=== PATIENT | male | born 1985 | race Two or more races ===

== ENCOUNTER 2025-05-01 16:39 | Inpatient (IN) | payer MEDICAID, OTHER ==
[~2025-05-01] VITALS: Ht 172.7 cm; Wt 85.0 kg
--- NOTE | 2025-05-01 17:07 | ED.PDOC ---
Altered Mental Status HPI Comments This is a 40-year-old male with past medical history of multiple psychiatric problems, depression, anxiety, possible developmental delay brought in by EMS from home due to altered mental status. Per EMS report, family called because patient has been catatonic (is not moving), and decreased oral intake. Per EMS report, patient was hypertensive at the scene (160s) upon ER arrival blood pressure was 145/75. During my assessment, patient was not responding to questions, tried to speak through the ceramic artist (per EMS removed, family speaks Colombian). Time Seen by MD: 16:45 Reviewed Notes: Nurses Notes Allergies: Coded Allergies: NO KNOWN ALLERGIES (Unverified , 05/01/25) Information Source: Patient Mode of Arrival: EMS Severity: Severe Past Medical History PAST MEDICAL HISTORY: Denies Surgical History: Denies all surgeries Family History Family History: Reviewed,noncontributory to illness, No family hx of Cancer, No family hx of DM, No family hx of Heart angela, No family hx of HTN, No family hx ofKidney angela, No family hx of Liver angela, No family hx of Lung angela, No family hx of Stroke Social History Smoker: Non-Smoker Alcohol: Denies ETOH Use Drugs: Denies Drug Use Constitutional: reports: others (Patient is altered and can not provide review of system.) Physical Exam General Appearance: Moderate Distress, No Apparent Distress, Normal HEENT: Normal ENT Inspection, Pharynx Normal, TMs Normal Neck: Full Range of Motion, Non-Tender, Normal, Normal Inspection Respiratory: Chest Non-Tender, Lungs Clear, No Accessory Muscle Use, No Respiratory Distress, Normal Breath Sounds Cardiovascular: No Edema, No JVD, No Murmur, No Gallop, Normal Peripheral Pulses, Regular Rate/Rhythm Breast Exam: Deferred Gastrointestinal: No Organomegaly, Non Tender, No Pulsatile Mass, Normal Bowel Sounds, Soft Genitalia: Deferred Pelvic: Deferred Rectal: Deferred Extremities: No calf tenderness, Normal capillary refill, Normal inspection, Normal range of motion, Non-tender, No pedal edema Neurologic: Alert, louver door assembler II-XII nml as Tested, No Motor Deficits, Normal Affect, Normal Mood, No Sensory Deficits Cerebellar Function: Normal Reflexes: Normal Skin: Dry, Normal Color, Warm Lymphatic: No Adenopathy Was a procedure done? Was a procedure done?: No Differential Diagnosis (ALOC) Differential Diagnosis: Dehydration, Meningitis, Sepsis, Hypoxemia, Drug Overdose, ETOH Intoxication X-Ray, Labs, Meds, VS Vital Signs Date Time Temp Pulse Resp B/P (MAP) Pulse Ox O2 Delivery O2 Flow Rate FiO2 05/01/25 19:15 114 10 141/82 (101) 97 05/01/25 19:15 Nasal Cannula* 4 36 05/01/25 18:37 117 05/01/25 16:40 98.2 100 24 145/98 94 98.2 Lab Test 05/01/25 17:21 Range/Units White Blood Count 13.3 H 4.4-10.8 10^3/uL Red Blood Count 4.25 L 4.5-5.90 10^6/uL Hemoglobin 13.0 L 13.5-17.5 g/dL Hematocrit 39.5 L 41.0-53.0 % Mean Corpuscular Volume 93.0 80.0-100.0 fL Mean Corpuscular Hemoglobin 30.6 28.0-32.0 pg Mean Corpuscular Hemoglobin Concent 32.9 32.0-36.0 g/dL Red Cell Distribution Width 14.6 H 11.8-14.3 % Platelet Count 83 L 140-450 10^3/uL Mean Platelet Volume 7.7 6.9-10.8 fL Neutrophils (%) (Auto) 76.8 37.0-80.0 % Lymphocytes (%) (Auto) 9.3 L 10.0-50.0 % Monocytes (%) (Auto) 13.5 H 0.0-12.0 % Eosinophils (%) (Auto) 0.1 0.0-7.0 % Basophils (%) (Auto) 0.3 0.0-2.0 % Neutrophils # (Auto) 10.2 H 1.6-8.6 10 ^3/uL Lymphocytes # (Auto) 1.2 0.4-5.4 10 ^3/uL Monocytes # (Auto) 1.8 H 0-1.3 10 ^3/uL Eosinophils # (Auto) 0 0-0.8 10 ^3/uL Basophils # (Auto) 0 0-0.2 10 ^3/uL Nucleated Red Blood Cells 0.0 % Sodium Level 144 136-145 mmol/L Potassium Level 4.1 3.5-5.1 mmol/L Chloride Level 112 H 98-107 mmol/L Carbon Dioxide Level 23 20-31 mmol/L Anion Gap 9 5-15 Blood Urea Nitrogen 12 9-23 mg/dL Creatinine 1.02 0.700-1.30 mg/dL Glomerular Filtration Rate Calc 95 >90 mL/min BUN/Creatinine Ratio 11.8 10.0-20.0 Serum Glucose 92 74-106 mg/dL Calcium Level 7.6 L 8.7-10.4 mg/dL Total Bilirubin 0.3 0.2-1.0 mg/dL Aspartate Amino Transferase (AST) 44 H 13-40 U/L Alanine Aminotransferase (ALT) 31 7-40 U/L Alkaline Phosphatase 80 46-116 U/L Creatine Kinase MB Pending Troponin I High Sensitivity 5 </=54 ng/L Total Protein 6.2 5.7-8.2 g/dL Albumin 3.7 3.2-4.8 g/dL Current Medications Medications (Trade) Dose Ordered Sig/Penny Route Start Time Stop Time Status Last Admin Sodium Chloride 1,000 ml @ 1,000 mls/hr Q1H ONCE IV 05/01/25 17:15 05/01/25 18:14 DC 05/01/25 18:09 Sodium Chloride 1,000 ml @ 1,000 mls/hr Q1H ONCE IV 05/01/25 20:00 05/01/25 20:59 DC 05/01/25 20:07 Time of 1ST Reevaluation: 18:00 Reevaluation 1ST: Unchanged Patient Education/Counseling: Pt Unresponsive Family Education/Counseling: No Family Present Comments Patient was brought from home due to altered mental status and responsiveness Patient was vitally within normal limits. Upon ER arrival, patient was altered and could not provide history. CBC shows raised WBC Patient was given IV fluid and Ativan Patient will be admitted for inpatient care and further management. SEPSIS Sepsis Screen Physician Orders Urinalysis (05/01/25 17:08) Drug Screen (05/01/25 17:08) Covid19 Antigen Sue (05/01/25 ) Rapid Influenza A&B (05/01/25 17:08) Head Without Contrast (05/01/25 17:08) Electrocardigram (05/01/25 17:08) Creatine Kinase Ckmb (05/01/25 19:49) Vital Signs Date Time Temp Pulse Resp B/P (MAP) Pulse Ox O2 Delivery O2 Flow Rate FiO2 05/01/25 19:15 114 10 141/82 (101) 97 05/01/25 19:15 Nasal Cannula* 4 36 05/01/25 18:37 117 05/01/25 16:40 98.2 100 24 145/98 94 98.2 Laboratory Tests Test 05/01/25 17:21 White Blood Count 13.3 10^3/uL (4.4-10.8) H Medications Medications Dose Ordered Sig/Penny Route Start Time Stop Time Status Last Admin Dose Admin Sodium Chloride 1,000 ml @ 1,000 mls/hr Q1H ONCE IV 05/01/25 17:15 05/01/25 18:14 DC 05/01/25 18:09 Sodium Chloride 1,000 ml @ 1,000 mls/hr Q1H ONCE IV 05/01/25 20:00 05/01/25 20:59 DC 05/01/25 20:07 Departure 1 Departure Time of Disposition: 21:10 Impression: Primary Impression: Toxic encephalopathy Additional Impression: Altered mental status Disposition: ADMITTED INPATIENT Admit to: Tele Condition: Serious Critical Care Note Critical Care Time?: No Stability Stability form required: No Heart Score Heart Score: Heart Score Response (Comments) Value History N/A 0 EKG N/A 0 Age N/A 0 Risk Factors N/A 0 Troponin N/A 0 Total 0 [id number] DUARTE May 01, 2025 17:07
[2025-05-01 17:40] LABS: Hematocrit 39.5 % (41.0-53.0); Hemoglobin 13.0 g/dL (13.5-17.5); Mean Corpuscular Hemoglobin 30.6 pg (28.0-32.0); Mean Corpuscular Volume 93.0 fL (80.0-100.0); Nucleated Red Blood Cells % 0.0 %
[2025-05-01 17:47] LABS: Alanine Aminotransferase 31 U/L (7-40); Albumin 3.7 g/dL (3.2-4.8); Alkaline Phosphatase 80 U/L (46-116); Anion Gap 9 (5-15); BUN/Creatinine Ratio 11.8 (10.0-20.0); Blood Urea Nitrogen 12 mg/dL (9-23); Carbon Dioxide 23 mmol/L (20-31); Glucose 92 mg/dL (74-106); Potassium 4.1 mmol/L (3.5-5.1); Sodium 144 mmol/L (136-145); Total Protein 6.2 g/dL (5.7-8.2)
[2025-05-01 17:48] LABS: Bilirubin, Total 0.3 mg/dL (0.2-1.0); Calcium 7.6 mg/dL (8.7-10.4); Chloride 112 mmol/L (98-107)
[2025-05-01] MEDS: SODIUM CHLORIDE 0.9% 1,000 ML IV ONE ×2 (18:09→20:07)
[2025-05-01] MEDS: LORazepam 2MG/ML-1ML VIAL IV ONE (18:51)
--- NOTE | 2025-05-01 21:14 | DVH ---
EXAM: CT HEAD WITHOUT CONTRAST INDICATION: ALOC TECHNIQUE: CT of the head without intravenous contrast. Radiation Dose Information: CT Dose: CTDI volume is 47.7 mGy. Dose-length product is 1006.29 mGy*cm The dose indicators for CT are the volume Computed Tomography (CT) Dose Index (CTDIvol) and the Dose Length Product (DLP), and are measured in units of mGy and mGy-cm, respectively. These indicators are not patient dose, but values generated from the CT scanner acquisition factors. The report includes radiation exposure data for exposures received during this examination. COMPARISON: None FINDINGS: There is no evidence of acute intracranial hemorrhage, extra-axial collection, mass effect, midline s hift, herniation or hydrocephalus. The ventricles, sulci and cisterns are age appropriate. The pantoja-white differentiation is intact. Patchy periventricular and subcortical white matter hypoattenuation is nonspecific but may be related to small vessel ischemic disease. The visualized paranasal sinuses and mastoid air cells are clear. The surrounding soft tissues and osseous structures are unremarkable. IMPRESSION: 1. No acute intracranial abnormality.
[2025-05-01 21:46] LABS: Urine Protein, UAD Negative (Negative)
[2025-05-01 21:52] LABS: Lactic Acid w/Reflex 2.1 mmol/L (0.4-2.0)
[2025-05-01 22:07] LABS: Opiate Scree,Urine Neg (NEGATIVE)
[2025-05-01 22:08] LABS: Amphetamine Screen, Urine Neg (NEGATIVE); Barbiturate Scree,Urine Neg (NEGATIVE); Benzodiazephine Screen, Urine Pos (NEGATIVE); Cannabinoid Screen, Urine Neg (NEGATIVE); Cocaine Screen, Urine Neg (NEGATIVE); Phencyclidine Screen, Urine Neg (NEGATIVE)
[2025-05-01] MEDS: CEFEPIME 1GM/50ML 50 ML IV ONE (22:09)
--- NOTE | 2025-05-01 22:18 | DVH ---
EXAM: XY CHEST XRAY 1 VIEW CLINICAL HISTORY: Pneumonia TECHNIQUE: Single AP view of the chest WID: COMPARISON: None FINDINGS: Lines and tubes: None Chest: The heart size and pulmonary vasculature is within normal limits. Small mixed opacities in the bilateral lung bases, greater on the right. The osseous structures are grossly intact. IMPRESSION: 1. Small mixed opacities in the bilateral lung bases, greater on the right which could reflect atelec tasis or pneumonia.
--- NOTE | 2025-05-01 23:40 | DVHHPRES ---
History of Present Illness Resident Creating Document: BELLE GUAN RESIDENT History of Present Illness As per ER physician, patient is a 40-year-old male with past medical history of multiple psychiatric problems, depression, anxiety possible developmental delay was brought in the EMS from home due to altered mental status. Per EMS report, family called because patient has been catatonic (is not moving), and decreased oral intake. Per EMS report, patient was hypertensive at the scene (160s) upon ER arrival blood pressure was 145/75. During ER physician assessment, patient was not responding to questions, tried to speak through the liner helper (per EMS removed, family speaks Greek). Patient was put on restraints as he was trying to remove IV lines initially, patient was started on Braga catheter as he was incontinent. On evaluation, patient is alert and oriented x3, responding well to the questions but still mild drowsiness. Patient mentioned that he took some medication for recreation that included valproic acid, aspirin. Patient denied any suicidal ideation. Patient denied any hallucinations. Denied any other active complaints including chest pain, shortness of breath, nausea, vomiting, abdominal pain. Past medical history Multiple psychiatric problems, Medication history Seroquel Surgical history No recent surgery Family history Not obtainable Social history Patient mentioned using recreational drugs but did not mentioned which once Denied smoking, alcohol, marijuana Allergic history No known allergies Review of Systems Review of Systems Review of system could not be obtained as patient was altered and later confused Allergies: Coded Allergies: NO KNOWN ALLERGIES (Unverified , 05/01/25) Exam Vital Signs Vital Signs Date Time Temp Pulse Resp B/P (MAP) Pulse Ox O2 Delivery O2 Flow Rate FiO2 05/01/25 19:15 114 10 141/82 (101) 97 05/01/25 19:15 Nasal Cannula* 4 36 05/01/25 16:40 98.2 98.2 Exam Examination General Appearance: Alert, Oriented x3 of four, erythema over the face, mild rash and with a chest Respiratory: Clear to auscultation, Normal air movement Cardiovascular: Regular rate, Normal S1, Normal S2 Abdominal: Normal bowel sounds Extremities: No cyanosis, No edema, Normal pulses, No tenderness/swelling Skin: No rashes, No breakdown Neuro: Confused Labs/Xrays Labs Test 05/01/25 23:17 05/01/25 21:10 05/01/25 17:21 Range/Units Urine Color Colorless Yellow Urine Clarity Clear Clear Urine pH 5.0 5.0-9.0 Urine Specific [place] 1.008 1.001-1.035 Urine Protein Negative Negative Urine Ketones Negative Negative Urine Blood Negative Negative /uL Urine Nitrite Negative Negative Urine Bilirubin Negative Negative Urine Urobilinogen Normal Negative mg/dL Urine Leukocyte Esterase Negative Negative /uL Urine RBC <1 0 - 3 /hpf Urine Microscopic WBC < 1 0-3 /HPF Urine Squamous Epithelial Cells None seen <5 /hpf Urine Bacteria None seen None Seen /hpf Urine Glucose Normal Normal mg/dL Urine Opiates Screen Neg NEGATIVE Urine Fentanyl Screen Neg NEGATIVE Urine Barbiturates Screen Neg NEGATIVE Urine Phencyclidine Screen Neg NEGATIVE Urine Amphetamines Screen Neg NEGATIVE Urine Benzodiazepines Screen Pos NEGATIVE Urine Cocaine Screen Neg NEGATIVE Urine Cannabinoids Screen Neg NEGATIVE White Blood Count 13.3 H 4.4-10.8 10^3/uL Red Blood Count 4.25 L 4.5-5.90 10^6/uL Hemoglobin 13.0 L 13.5-17.5 g/dL Hematocrit 39.5 L 41.0-53.0 % Mean Corpuscular Volume 93.0 80.0-100.0 fL Mean Corpuscular Hemoglobin 30.6 28.0-32.0 pg Mean Corpuscular Hemoglobin Concent 32.9 32.0-36.0 g/dL Red Cell Distribution Width 14.6 H 11.8-14.3 % Platelet Count 83 L 140-450 10^3/uL Mean Platelet Volume 7.7 6.9-10.8 fL Neutrophils (%) (Auto) 76.8 37.0-80.0 % Lymphocytes (%) (Auto) 9.3 L 10.0-50.0 % Monocytes (%) (Auto) 13.5 H 0.0-12.0 % Eosinophils (%) (Auto) 0.1 0.0-7.0 % Basophils (%) (Auto) 0.3 0.0-2.0 % Neutrophils # (Auto) 10.2 H 1.6-8.6 10 ^3/uL Lymphocytes # (Auto) 1.2 0.4-5.4 10 ^3/uL Monocytes # (Auto) 1.8 H 0-1.3 10 ^3/uL Eosinophils # (Auto) 0 0-0.8 10 ^3/uL Basophils # (Auto) 0 0-0.2 10 ^3/uL Nucleated Red Blood Cells 0.0 % Sodium Level 144 136-145 mmol/L Potassium Level 4.1 3.5-5.1 mmol/L Chloride Level 112 H 98-107 mmol/L Carbon Dioxide Level 23 20-31 mmol/L Anion Gap 9 5-15 Blood Urea Nitrogen 12 9-23 mg/dL Creatinine 1.02 0.700-1.30 mg/dL Glomerular Filtration Rate Calc 95 >90 mL/min BUN/Creatinine Ratio 11.8 10.0-20.0 Serum Glucose 92 74-106 mg/dL Calcium Level 7.6 L 8.7-10.4 mg/dL Total Bilirubin 0.3 0.2-1.0 mg/dL Aspartate Amino Transferase (AST) 44 H 13-40 U/L Alanine Aminotransferase (ALT) 31 7-40 U/L Alkaline Phosphatase 80 46-116 U/L Troponin I High Sensitivity 5 </=54 ng/L Total Protein 6.2 5.7-8.2 g/dL Albumin 3.7 3.2-4.8 g/dL SEPSIS Sepsis Screen Date sepsis recognized/suspect: May 01, 2025 Time Sepsis recognized/suspect: 1640 Recent Procedure: No On Antibiotic Therapy: No Respiratory Rate >20: Yes Heart Rate >90: Yes Temp<36 C (96.8 F) or >38.3 C: No SBP <90 or MAP <65 mmHG: No New Acute Mental Status Change: Yes Is the patient on CPAP, BIPAP,: No Physician Orders Covid19 Antigen Sue (05/01/25 ) Rapid Influenza A&B (05/01/25 17:08) Head Without Contrast (05/01/25 17:08) Electrocardigram (05/01/25 17:08) Creatine Kinase Ckmb (05/01/25 19:49) Chest Xray 1 View (05/01/25 21:03) Blood Culture (05/01/25 21:07) Urine Bacterial Culture (05/01/25 21:07) Braga Catheters (05/01/25 ) Admit (05/01/25 23:36) Oxygen By Nasal Cannula (05/01/25 23:36) Stat Ekg For Chest Pain (05/01/25 23:36) Notify Md Of Changes From Base (05/01/25 23:36) Public Records Researcher For 24 Hours (05/01/25 23:36) Emergency Dysrhythmia Protocol (05/01/25 23:36) Rhythm Strips Once Every Shift (05/01/25 23:36) Vital Signs Date Time Temp Pulse Resp B/P (MAP) Pulse Ox O2 Delivery O2 Flow Rate FiO2 05/01/25 19:15 114 10 141/82 (101) 97 05/01/25 19:15 Nasal Cannula* 4 36 05/01/25 18:37 117 05/01/25 16:40 98.2 100 24 145/98 94 98.2 Laboratory Tests Test 05/01/25 17:21 05/01/25 21:11 05/01/25 23:17 White Blood Count 13.3 10^3/uL (4.4-10.8) H Lactic Acid Level 2.1 mmol/L (0.4-2.0) *H Pending Medications Medications Dose Ordered Sig/Penny Route Start Time Stop Time Status Last Admin Dose Admin Cefepime HCl 50 ml @ 50 mls/hr ONCE ONCE IV 05/01/25 21:15 05/01/25 22:14 DC 05/01/25 22:09 50 MLS/HR Sodium Chloride 1,000 ml @ 1,000 mls/hr Q1H ONCE IV 05/01/25 17:15 05/01/25 18:14 DC 05/01/25 18:09 1,000 MLS/HR Sodium Chloride 1,000 ml @ 1,000 mls/hr Q1H ONCE IV 05/01/25 20:00 05/01/25 20:59 DC 05/01/25 20:07 1,000 MLS/HR Assessment/Plan Assessment/Plan Assessment/plan # ALOC due to toxic encephalopathy Head CT Drug screen Labs including valproic acid levels, aspirin level, acetaminophen levels, ammonia as per poison control Venous blood gas EKG # acute hypoxic respiratory failure, resolved due to likely aspiration pneumonia -was on nasal cannula, now room air # urinary incontinence due to toxic encephalopathy Patient is on Braga's catheter, continue until patient becomes more alert and consider discontinuation after that # sepsis likely due to possible aspiration pneumonia IV fluids, 2 L were given by ER physician IV antibiotics, started on cefepime by ER physician Lactic acid Blood culture, sputum culture # thrombocytopenia Monitor # ? Aspiration pneumonia due to ALOC due to toxic encephalopathy X-ray revealed small mixed opacities in the bilateral lung bases greater than right which could reflect atelectasis or pneumonia Patient was started on cefepime by the ER physician # asymptomatic hypocalcemia monitor Corrected calcium 7.8 # mild transaminitis Monitor # history of psychiatric morbidities including anxiety, depression We will resume home Meds once patient is more alert Code status could not be discussed with the patient as patient is confused Case discussion with Dr Velazco Plan discussed with: Patient, Other My Orders Orders - BELLE GUAN Procedure Category Date Status Time Admit ADMIT 05/01/25 Transmitted 23:36 Oxygen By Nasal RT 05/01/25 Transmitted Cannula 23:36 Stat Ekg For Chest [facility] 05/01/25 In Process Pain 23:36 Notify Of Changes [facility] 05/01/25 In Process From Base 23:36 Public Records Researcher For [facility] 05/01/25 In Process 24 Hours 23:36 Emergency Dysrhythmia [facility] 05/01/25 In Process Protocol 23:36 Rhythm Strips Once [facility] 05/01/25 In Process Every Shift 23:36 BELLE GUAN RESIDENT May 01, 2025 23:40
[2025-05-02 00:27] LABS: Acetaminophen < 2.0 UG/ML (10.0-20.0); Salicylate < 3.0 mg/dL (-30)
[2025-05-02 02:09] VITALS: PULSE 97; RESP 24; O2SAT 94
[2025-05-02 02:18] LABS: Salicylate < 3.0 mg/dL (-30)
[2025-05-02 03:02] LABS: Acetaminophen < 2.0 UG/ML (10.0-20.0)
[2025-05-02 03:37] LABS: COVID19 ANTIGEN SOFIA FIA NEGATIVE (NEGATIVE)
[2025-05-02 04:59] LABS: Hematocrit 38.5 % (41.0-53.0); Hemoglobin 13.0 g/dL (13.5-17.5); Mean Corpuscular Hemoglobin 30.6 pg (28.0-32.0); Mean Corpuscular Volume 90.7 fL (80.0-100.0); Nucleated Red Blood Cells % 0.0 %
[2025-05-02 05:32] LABS: Alanine Aminotransferase 30 U/L (7-40); Albumin 3.6 g/dL (3.2-4.8); Alkaline Phosphatase 74 U/L (46-116); Anion Gap 11 (5-15); BUN/Creatinine Ratio 10.5 (10.0-20.0); Blood Urea Nitrogen 10 mg/dL (9-23); Carbon Dioxide 23 mmol/L (20-31); Glucose 93 mg/dL (74-106); Magnesium 1.7 mg/dL (1.6-2.6); Total Protein 6.1 g/dL (5.7-8.2)
[2025-05-02 05:33] LABS: Bilirubin, Total 0.4 mg/dL (0.2-1.0)
[2025-05-02 05:39] LABS: Calcium 7.7 mg/dL (8.7-10.4); Chloride 112 mmol/L (98-107); Potassium 3.4 mmol/L (3.5-5.1); Sodium 146 mmol/L (136-145)
[2025-05-02] MEDS: AZITHROMYCIN 500MG/ 250ML 250 ML IV SCH (06:57)
[2025-05-02] MEDS: POTASSIUM EFFERVESENT TAB 25 MEQ GT ONE (07:50)
[2025-05-02 08:01] LABS: Hematocrit 37.8 % (41.0-53.0); Hemoglobin 12.9 g/dL (13.5-17.5); Mean Corpuscular Hemoglobin 30.9 pg (28.0-32.0); Mean Corpuscular Volume 90.3 fL (80.0-100.0); Nucleated Red Blood Cells % 0.1 %
[2025-05-02 08:12] LABS: Alanine Aminotransferase 30 U/L (7-40); Alkaline Phosphatase 71 U/L (46-116); Carbon Dioxide 25 mmol/L (20-31); Glucose 99 mg/dL (74-106); INR 1.07 (0.9-1.15); Magnesium 1.9 mg/dL (1.6-2.6); Partial Thromboplastin Time 28.2 SEC (24.5-34.5); Potassium 3.6 mmol/L (3.5-5.1); Prothrombin Time 11.3 sec (9.3-11.8); Sodium 143 mmol/L (136-145); Triglycerides 136 mg/dL (< 150)
[2025-05-02 08:13] LABS: Albumin 3.6 g/dL (3.2-4.8); Anion Gap 8 (5-15); BUN/Creatinine Ratio 9.5 (10.0-20.0); Bilirubin, Total 0.4 mg/dL (0.2-1.0); Blood Urea Nitrogen 9 mg/dL (9-23); Cholesterol 120 mg/dL (< 200); Total Protein 6.1 g/dL (5.7-8.2)
[2025-05-02 08:18] LABS: Calcium 8.1 mg/dL (8.7-10.4); Chloride 110 mmol/L (98-107); HDL Cholesterol 35 mg/dL (40-59)
--- NOTE | 2025-05-02 08:48 | DVHPNRES ---
Progress Note Date Seen: May 02, 2025 Resident Creating Document: GINA ALFONSO RESIDENT Medical Necessity Reason Pt with a Central, PICC or Fol: No Subjective Review of Systems Jack Zarate 40-year-old male with past medical history of anxiety, depression, multiple suicidal attempts, possible developmental delays, polysubstance use, presented to the ER with altered mental status. Could not obtain review of systems due to patient's clinical status. Obtained information by EMR. Patient was with friends confusion Seroquel and overdosed with roommates (Seroquel, valproic acid, benzodiazepines, Tylenol). When evaluated in ED patient presented hypertension and desaturation, required nasal cannula at 4 L/min. Patient seen and evaluated at bedside. This morning when I spoke to the patient, he was soiled in urine, alert and oriented to time,place and person, the patient reports " I am 100 percent fine." The patient wanted to go home. He denies any chest pain, shortness of breath, fever, chills, recent travel or sick contacts history. The patient is not sexually active currently, however, he has a remote history of unsafe sexual exposure. He used multiple medications as above for recreation with his friends. Patient reports no suicidal ideation, however, according to sister the patient has suicidal ideations. Tele psychiatry evaluated patient indicated 5150 hold, ordered medical social worker to transfer to inpatient Psychiatry, he is clinically stable for transfer. Objective vital signs Vital Sign Date Time Temp Pulse Resp B/P (MAP) Pulse Ox O2 Delivery O2 Flow Rate FiO2 05/02/25 08:00 98.1 97 20 145/76 (99) 97 98.1 05/02/25 07:44 Room Air* 0 21 Total Intake and Output 05/01/25 05/01/25 05/02/25 15:00 23:00 07:00 Intake Total 1000 ml 50 ml Output Total 1300 ml Balance 1000 ml -1250 ml medications Current Medications Medications Dose Ordered Sig/Penny Route Start Time Stop Time Status Last Admin Dose Admin Ceftriaxone Sodium 50 ml @ 100 mls/hr DAILY@0500 IV 05/02/25 05:00 05/02/25 06:23 100 MLS/HR Azithromycin 250 ml @ 125 mls/hr DAILY@0600 IV 05/02/25 06:00 05/02/25 06:57 125 MLS/HR Sodium Chloride 1,000 ml @ 100 mls/hr Q10H IV 05/02/25 07:15 UNV Examination Pt is lying on bed General Appearance: Alert, Oriented X3, Cooperative, Mild distress HEENT: Atraumatic, Mucous membranes moist/pink Respiratory: Clear to auscultation, Normal air movement, No added sounds Cardiovascular: Regular rate, Normal S1, Normal S2, No murmurs Abdominal/ : Active bowel sounds, Soft, no distention, no tenderness Extremities: No edema, Normal pulses, right knee rash following trauma Skin: No significant rash, except past surgical scars Neuro: Normal speech, sensorimotor deficits none Psych/Mental Status: Mental status NL, Mood NL Nurse was there as evp operations during examination laboratory and microbiology Laboratory Tests 05/02/25 07:40 Test 05/02/25 07:40 Range/Units Serum Glucose 99 74-106 mg/dL Problem List/Assessment/Plan Problem List/Assessment/Plan # Toxic encephalopathy # Suicidal ideation Head CT: No acute intracranial abnormality Urine toxicology was positive for valproic acid, acetaminophen and benzodiazepines. VBG: pH 7.4, oxygen saturation 48.1, Carboxyhemoglobin 1.2, meth hemoglobin 0.4. FiO2 21 Tele psychiatry was consulted: recommended 5150 hold. Insurance Processing Clerk consulted for transfer to inpatient psychiatry, currently clinically stable Patient on tele monitor for arrhythmias # Acute hypoxic respiratory failure, resolved due to likely aspiration pneumonia Patient initially required oxygen therapy with nasal cannula 4 L/min. Currently in room air # Sepsis likely due to possible aspiration pneumonia # Questionable Aspiration pneumonia Patient under empiric IV antibiotics (ceftriaxone and doxycycline, previously on cefepime) X-ray revealed small mixed opacities in the bilateral lung bases greater than right which could reflect atelectasis or pneumonia Patient require IV fluids # Thrombocytopenia # Normocytic anemia Monitor No active bleeding # Asymptomatic hypocalcemia # Hypokalemia-resolved # Hypernatremia-resolved Monitor Corrected calcium 8.4 Replenished # Mild transaminitis Monitor # Anxiety # Depression # Suicidal attempts # Questionable bipolar disorder Currently have discontinued all medication due to suicidal attempt. Valproic acid below therapeutic range. We will evaluate restarting this medication # Vitamin-D deficiency Replenished Goals of care discussed with patient for of 18 minutes: Full code status Patient is medically cleared to be transferred to psychiatry inpatient unit. Discussed plan with Dr. Sorto, patient and nurses. Plan discussed with: Patient, Other (RN and sister) My Orders My Orders Orders - KADEN,GINA RESIDENT Procedure Category Date Status Time Chlamydia/Gc LAB 05/02/25 Transmitted Amplification 08:43 Chlamydia Igg Antibody LAB 05/02/25 Transmitted 08:43 Hiv 1&2 Antibody LAB 05/02/25 Transmitted 08:43 Date of Service: May 02, 2025 Billing Provider: DONY SORTO MD Common Visit Codes: [id number] INP/OBS CARE(HIGH) GINA ALFONSO RESIDENT May 02, 2025 08:48 DAJA LARSON RESIDENT May 03, 2025 09:21 DONY SORTO MD May 07, 2025 21:24
[2025-05-02 11:46] LABS: Free T4 (Free Thyroxine) 0.75 ng/dL (0.89-1.76)
[2025-05-02 13:30] VITALS: PULSE 89; RESP 22; O2SAT 99
--- NOTE | 2025-05-02 15:30 | PRN ---
Misceleneous Note Note Note spoke w fantasma, per fantasma, her aunt found him unconscious at home. prior SI w plan 1 month [employer] per sister. also sister reported patient stating and texting intent to end his life multiple time. per sister, his mother is bedridden and she is the POA for her mother. DONY BONILLA MD May 02, 2025 15:30
--- NOTE | 2025-05-02 15:58 | DVHINCON2 ---
Date of Service if different f: May 02, 2025 Time of Service: 15:57 Consultation ([facility] [place]) Labs Laboratory Tests Test 05/01/25 17:21 05/01/25 21:10 05/01/25 23:17 05/02/25 01:00 Troponin I High Sensitivity 5 ng/L (</=54) Urine Color Colorless (Yellow) Urine Clarity Clear (Clear) Urine pH 5.0 (5.0-9.0) Urine Specific [place] 1.008 (1.001-1.035) Urine Protein Negative (Negative) Urine Ketones Negative (Negative) Urine Blood Negative /uL (Negative) Urine Nitrite Negative (Negative) Urine Bilirubin Negative (Negative) Urine Urobilinogen Normal mg/dL (Negative) Urine Leukocyte Esterase Negative /uL (Negative) Urine RBC <1 /hpf (0 - 3) Urine Microscopic WBC < 1 /HPF (0-3) Urine Squamous Epithelial Cells None seen /hpf (<5) Urine Bacteria None seen /hpf (None Seen) Urine Glucose Normal mg/dL (Normal) Urine Opiates Screen Neg (NEGATIVE) Urine Fentanyl Screen Neg (NEGATIVE) Urine Barbiturates Screen Neg (NEGATIVE) Urine Phencyclidine Screen Neg (NEGATIVE) Urine Amphetamines Screen Neg (NEGATIVE) Urine Benzodiazepines Screen Pos (NEGATIVE) Urine Cocaine Screen Neg (NEGATIVE) Urine Cannabinoids Screen Neg (NEGATIVE) Lactic Acid Level 1.3 mmol/L (0.4-2.0) Blood Gas Specimen Type Venous Blood Gas Sample Site Vbg - n/a Blood Gas Patient Temperature 37.0 Arterial Blood Date Drawn [id number] Puneet Test N/a Venous Blood pH 7.401 (7.320-7.430) Venous Blood pCO2 at Patient Temp 40.7 mmHg (38.0-54.0) Venous Blood pO2 at Patient Temp < 36.5 mmHg (23.0-48.0) Venous Blood HCO3 24.7 mmol/L (22.0-29.0) Venous Bld O2 Saturation (Measured) 48.1 % (60.0-85.0) Venous Blood Base Excess -0.1 mmol/L (-2.0-3.0) Venous Blood Total Hemoglobin 13.8 g/dL (13.5-17.5) Venous Blood Oxyhemoglobin 47.3 % (0.0-79.0) Venous Blood Carboxyhemoglobin 1.2 % (0.5-1.5) Venous Blood Methemoglobin 0.4 % (0.0-1.5) Blood Gas Modality Room air FiO2 % 21.0 Blood Gas Comments Test 05/02/25 01:40 05/02/25 02:25 05/02/25 07:40 05/02/25 09:17 Ammonia < 10 umol/L (11-32) Salicylates Level < 3.0 mg/dL (-30) Acetaminophen Level < 2.0 UG/ML (10.0-20.0) Valproic Acid (Depakene) Level 10.0 ug/mL (50-100) Plasma/Serum Blood Alcohol < 3.0 mg/dL (<10) Influenza Type A Antigen Negative (Negative) Influenza Type B Antigen Negative (Negative) SARS-CoV-2 Antigen (Rapid) Negative (NEGATIVE) White Blood Count 14.3 10^3/uL (4.4-10.8) Red Blood Count 4.18 10^6/uL (4.5-5.90) Hemoglobin 12.9 g/dL (13.5-17.5) Hematocrit 37.8 % (41.0-53.0) Mean Corpuscular Volume 90.3 fL (80.0-100.0) Mean Corpuscular Hemoglobin 30.9 pg (28.0-32.0) Mean Corpuscular Hemoglobin Concent 34.2 g/dL (32.0-36.0) Red Cell Distribution Width 14.2 % (11.8-14.3) Platelet Count 96 10^3/uL (140-450) Mean Platelet Volume 7.6 fL (6.9-10.8) Neutrophils (%) (Auto) 70.6 % (37.0-80.0) Lymphocytes (%) (Auto) 11.5 % (10.0-50.0) Monocytes (%) (Auto) 16.6 % (0.0-12.0) Eosinophils (%) (Auto) 0.5 % (0.0-7.0) Basophils (%) (Auto) 0.8 % (0.0-2.0) Neutrophils # (Auto) 10.1 10 ^3/uL (1.6-8.6) Lymphocytes # (Auto) 1.6 10 ^3/uL (0.4-5.4) Monocytes # (Auto) 2.4 10 ^3/uL (0-1.3) Eosinophils # (Auto) 0.1 10 ^3/uL (0-0.8) Basophils # (Auto) 0.1 10 ^3/uL (0-0.2) Nucleated Red Blood Cells 0.1 % Prothrombin Time 11.3 sec (9.3-11.8) Prothromb Time International Ratio 1.07 (0.9-1.15) Activated Partial Thromboplast Time 28.2 SEC (24.5-34.5) Sodium Level 143 mmol/L (136-145) Potassium Level 3.6 mmol/L (3.5-5.1) Chloride Level 110 mmol/L (98-107) Carbon Dioxide Level 25 mmol/L (20-31) Anion Gap 8 (5-15) Blood Urea Nitrogen 9 mg/dL (9-23) Creatinine 0.95 mg/dL (0.700-1.30) Glomerular Filtration Rate Calc 104 mL/min (>90) BUN/Creatinine Ratio 9.5 (10.0-20.0) Serum Glucose 99 mg/dL (74-106) Hemoglobin A1c 5.7 % A1C (<5.7) Calcium Level 8.1 mg/dL (8.7-10.4) Magnesium Level 1.9 mg/dL (1.6-2.6) Total Bilirubin 0.4 mg/dL (0.2-1.0) Aspartate Amino Transf (AST/SGOT) 32 U/L (13-40) Alanine Aminotransferase (ALT/SGPT) 30 U/L (7-40) Alkaline Phosphatase 71 U/L (46-116) Total Protein 6.1 g/dL (5.7-8.2) Albumin 3.6 g/dL (3.2-4.8) Triglycerides Level 136 mg/dL (< 150) Cholesterol Level 120 mg/dL (< 200) LDL Cholesterol 68 mg/dL (< 100) HDL Cholesterol 35 mg/dL (40-59) Vitamin B12 Level 807 pg/mL (211-911) Vitamin D 25-Hydroxy 26.3 ng/mL (30.0-100) Thyroid Stimulating Hormone (TSH) 0.53 uIU/mL (0.55-4.78) Free Thyroxine (T4) Calculated 0.75 ng/dL (0.89-1.76) Total Triiodothyronine 0.68 ng/mL (0.60-1.81) HIV (1&2) Antibody Negative (Negative) Microbiology Date/Time Source Procedure Growth Status 05/02/25 07:50 Nose MRSA Screen - Final Complete 05/01/25 21:10 Voided Urine Urine Culture - Preliminary Resulted Vitals Vital Signs Date Time Temp Pulse Resp B/P (MAP) Pulse Ox O2 Delivery O2 Flow Rate FiO2 05/02/25 14:30 86 2 131/77 (95) 97 05/02/25 13:30 Room Air* 0 21 05/02/25 13:30 98.1 98.1 Current medications Current Medications Medications Dose Ordered Sig/Penny Route Start Time Stop Time Status Last Admin Dose Admin Ceftriaxone Sodium 50 ml @ 100 mls/hr DAILY@0500 IV 05/02/25 05:00 05/02/25 06:23 100 MLS/HR Sodium Chloride 1,000 ml @ 100 mls/hr Q10H IV 05/02/25 07:15 Doxycycline Hyclate 100 ml @ 50 mls/hr Q12H IV 05/02/25 15:45 UNV PSYCHIATRY CONSULTATION INITIAL EVALUATION REASON FOR CONSULT: Overdose HPI: Patient is a 40yo male admitted after overdose on prescribed medications. He is oriented to person, location, and reason for hospitalization but incorrectly states the date (though he is able to provide the year). He reports presenting because he could not sleep. He denies giving medication to others and explains he took a lot of pills in desperation to fall asleep. Patient states he was prescribed Seroquel nightly but has been self-escalating to 34 tablets without relief. He reports informing his doctor last month and that the dose was increased, though he cannot recall the new prescribed amount. Prior to admission, he ingested a handful of pills, which he rationalizes as safe after searching online, stating he had learned you cannot by taking a lot of Seroquel. He also reports taking 2 Gabapentin and 1 Depakote at the same time. He lives with his mother, Amelia Soliz, but does not know her phone number by memory. The patient reports remote SI at ages 78 but denies any suicidal thoughts or self-harm as an adult. He denies access to firearms. However, collateral from his sister reveals a different story: the patient has a recent history of suicidal ideation, was admitted one month ago for SI, and was found down by family who subsequently called 911. She also reports that he has been sending suicidal text messages, which the patient minimizes. PSYCHIATRIC HISTORY: Diagnosis: Depression, anxiety Admissions: Psychiatric admission at [facility] one month ago for one week Medication trials: Seroquel, Gabapentin, Depakote Outpatient care: Unclear Therapy: Unclear SI/Attempts: Patient denies, but family reports recent SI and hospitalization SUBSTANCE USE: Stopped drinking alcohol 4 years ago. Denies use of drugs. RELEVANT MEDICAL HISTORY: Noncontributory MENTAL STATUS EXAMINATION: The patient is alert, casually groomed, and cooperative though guarded. He appears calm but minimizes symptoms and provides vague or contradictory responses compared with collateral. Speech is normal in rate, volume, and tone. Mood is described as just trying to sleep, with affect constricted but not overtly anxious or labile. Thought processes are generally linear, though at times concrete. Thought content is notable for minimizing suicidal history despite collateral confirming recent suicidal ideation, prior admission, and suicidal text messages. He currently denies SI/HI but reliability is poor. No hallucinations or delusions are elicited. Cognition is grossly intact with partial disorientation to date. Insight and judgment are poor, particularly regarding the risks of overdose and medication misuse. DIFFERENTIAL DIAGNOSIS Major depressive disorder, recurrent, severe Unspecified anxiety disorder Adjustment disorder with depressed mood Substance/medication misuse (iatrogenic) ASSESSMENT: This is a male patient with depression and anxiety presenting after intentional overdose of Seroquel, Gabapentin, and Depakote. He minimizes his presentation, is guarded, and provides an account inconsistent with collateral from his sister, who confirms recent suicidal ideation, prior admission, and suicidal messaging. Despite denying current SI, his overdose, poor judgment, minimizing behavior, and unreliable self-report indicate ongoing elevated risk. He lacks protective factors, is medication non-adherent, and continues to demonstrate impaired insight. At this time, the patient continues to pose a danger to self and requires involuntary psychiatric hospitalization for safety and stabilization. RECOMMENDATIONS: 1. Legal: Initiate 1798 hold until LPS-designated staff can place a 5150 hold (valid for 24 hours, renewable an additional 24 hours). Until transfer, order a 1:1 sitter. 2. Disposition: Refer for inpatient psychiatric admission for safety, monitoring, and treatment. 3. Medications: Hold further self-administered medications until inpatient psy chiatric team can review regimen. Continue supportive medical care during transfer process. 4. Medical Considerations: Monitor for sequelae of overdose (cardiac including prolonged QTc, hepatic, FUND DEVELOPMENT MANAGER depression). Follow primary teams medical management recommendations. 5. Other: Obtain collateral from family (sister) for ongoing risk assessment and treatment planning. Reinforce safety planning and discuss importance of adherence and close psychiatric follow-up once stabilized. Patients primary outpatient prescriber should be informed and patient should not be dispensed large quantities of medications, possibly a week supply at a time. MEDARDO LOWE MD May 02, 2025 15:58
[2025-05-02] MEDS: SODIUM CHLORIDE 0.9% 1,000 ML IV SCH (16:07)
[2025-05-02] MEDS: DOXYCYCLINE 100MG/100ML 100 ML IV ONE (18:24)
[2025-05-02 19:30] VITALS: O2SAT 99
[2025-05-03] MEDS: DOXYCYCLINE 100MG/100ML 100 ML IV SCH (06:15)
[2025-05-03 07:24] LABS: Hematocrit 39.4 % (41.0-53.0); Hemoglobin 13.4 g/dL (13.5-17.5); Mean Corpuscular Hemoglobin 31.4 pg (28.0-32.0); Mean Corpuscular Volume 92.0 fL (80.0-100.0); Nucleated Red Blood Cells % 0.0 %
[2025-05-03 07:36] LABS: Potassium 3.9 mmol/L (3.5-5.1); Sodium 143 mmol/L (136-145)
[2025-05-03 07:37] LABS: Anion Gap 11 (5-15); Carbon Dioxide 21 mmol/L (20-31)
[2025-05-03 07:42] LABS: BUN/Creatinine Ratio 19.5 (10.0-20.0); Blood Urea Nitrogen 15 mg/dL (9-23)
[2025-05-03 07:43] LABS: Calcium 8.2 mg/dL (8.7-10.4); Chloride 111 mmol/L (98-107)
[2025-05-03 07:44] LABS: Glucose 69 mg/dL (74-106)
[2025-05-03 08:00] VITALS: BP 122/81; PULSE 78; RESP 19; TEMP 98.3; O2SAT 98
--- NOTE | 2025-05-03 09:18 | DVHPNRES ---
Progress Note Date Seen: May 03, 2025 Resident Creating Document: GINA ALFONSO RESIDENT Medical Necessity Reason Pt with a Central, PICC or Fol: No Objective vital signs Vital Sign Date Time Temp Pulse Resp B/P (MAP) Pulse Ox O2 Delivery O2 Flow Rate FiO2 05/03/25 08:00 98.3 78 19 122/81 (95) 98 98.3 05/03/25 07:57 Room Air* 0 21 Total Intake and Output 05/02/25 05/02/25 05/03/25 15:00 23:00 07:00 Intake Total 200 ml 650 ml Balance 200 ml 650 ml medications Current Medications Medications Dose Ordered Sig/Penny Route Start Time Stop Time Status Last Admin Dose Admin Ceftriaxone Sodium 50 ml @ 100 mls/hr DAILY@0500 IV 05/02/25 05:00 05/03/25 05:10 100 MLS/HR Sodium Chloride 1,000 ml @ 100 mls/hr Q10H IV 05/02/25 07:15 05/03/25 03:15 100 MLS/HR Doxycycline Hyclate 100 ml @ 50 mls/hr Q12H IV 05/03/25 06:00 05/03/25 06:15 50 MLS/HR Enoxaparin Sodium 40 mg DAILY SC 05/03/25 10:00 UNV Pantoprazole Sodium 40 mg DAILY IV 05/03/25 10:00 UNV laboratory and microbiology Laboratory Tests 05/03/25 06:40 Test 05/03/25 06:40 Range/Units Serum Glucose 69 L 74-106 mg/dL Microbiology Date/Time Source Procedure Growth Status 05/02/25 07:50 Nose MRSA Screen - Final Complete 05/01/25 21:15 Blood Blood Culture - Preliminary NO GROWTH AFTER 24 HOURS OF INCUBATION. Resulted 05/01/25 21:10 Voided Urine Urine Culture - Preliminary Resulted Labs and/or images reviewed: Labs reviewed by me, Image(s) reviewed by me Problem List/Assessment/Plan Problem List/Assessment/Plan # Toxic encephalopathy # Suicidal ideation Head CT: No acute intracranial abnormality Urine toxicology was positive for valproic acid, acetaminophen and benzodiazepines. VBG: pH 7.4, oxygen saturation 48.1, Carboxyhemoglobin 1.2, meth hemoglobin 0.4. FiO2 21 Tele psychiatry was consulted due to patient's suicidal ideation, Psychiatry recommended 5150 hold. Sitter 1:1 continued. Cat Scanner Operator consulted for transfer to inpatient psychiatry, currently clinically stable Patient admitted to tele monitor for arrhythmias # Acute hypoxic respiratory failure, resolved due to likely aspiration pneumonia Patient initially required oxygen therapy with nasal cannula 4 L/min. Currently in room air # Sepsis likely due to possible aspiration pneumonia # Questionable Aspiration pneumonia Patient under empiric IV antibiotics (ceftriaxone and doxycycline, previously on cefepime) X-ray revealed small mixed opacities in the bilateral lung bases greater than right which could reflect atelectasis or pneumonia Patient require IV fluids # Thrombocytopenia # Normocytic anemia Monitor No active bleeding # Asymptomatic hypocalcemia # Hypokalemia-resolved # Hypernatremia-resolved Monitor Corrected calcium 8.4 Replenished # Mild transaminitis Monitor #Sick Euthyroid Syndrome Monitor labs and check thyroid functions once clinically stable. # Anxiety # Depression # Suicidal attempts # Questionable bipolar disorder Currently have discontinued all medication due to suicidal attempt. Valproic acid below therapeutic range. We will evaluate restarting this medication # Vitamin-D deficiency Replenished Goals of care discussed with patient for of 18 minutes: Full code status Patient is medically cleared to be transferred to psychiatry inpatient unit. GI prophylaxis: Pantoprazole DVT prophylaxis: Lovenox Diet: Regular Goals of care discussed with the patient for more than 27 minutes: Full code status Case discussed with Dr. Sorto , patient and RN Discussed plan with Dr. Sorto, patient and nurses. Plan discussed with: Patient, Other (RN) Plan discussed with: Patient, Other My Orders My Orders Orders - GINA ALFONSO Procedure Category Date Status Time *Tele Psych Consult CONS 05/02/25 Transmitted 11:28 * Cat Scanner Operator CONS 05/02/25 Transmitted Consult 19:05 Basic Metabolic Panel LAB 05/04/25 Verified 04:00 GINA ALFONSO RESIDENT May 03, 2025 09:18
--- NOTE | 2025-05-03 10:09 | DVH ---
CHEST RADIOGRAPH Indication: Aspiration pneumonia Technique: Single frontal view of the chest was obtained Comparison: XY CHEST XRAY 1 VIEW on DOS: 05/01/25 FINDINGS: Lines and Tubes: None Lungs: No focal consolidation. Pleura: No effusion. No pneumothorax. Cardiomediastinal contours: Unremarkable Bones: No acute osseous abnormality. IMPRESSION: No acute cardiopulmonary disease.
[2025-05-03] MEDS: PANTOPRAZOLE 40 MG/10 ML VIAL INJ IV SCH (10:41)
[2025-05-03] MEDS: ENOXAPARIN SOD 40 MG/0.4 ML SYRINGE SC SCH (11:02)
--- NOTE | 2025-05-03 19:52 | DVHDSRES ---
Discharge Summary Date of Admission Resident Creating Document: GINA ALFONSO May 01, 2025 at 23:36 Date of Discharge: May 03, 2025 Admitting Diagnosis Acute toxic metabolic encephalopathy Suicidal ideation Labs/Diagnostic Data: Laboratory Results Test 05/03/25 09:48 05/03/25 06:40 05/02/25 09:17 05/02/25 07:40 Creatine Kinase 141 U/L (46-171) Treponema pallidum Antibody Non-reactive (Negative) White Blood Count 8.3 10^3/uL (4.4-10.8) Red Blood Count 4.29 10^6/uL (4.5-5.90) Hemoglobin 13.4 g/dL (13.5-17.5) Hematocrit 39.4 % (41.0-53.0) Mean Corpuscular Volume 92.0 fL (80.0-100.0) Mean Corpuscular Hemoglobin 31.4 pg (28.0-32.0) Mean Corpuscular Hemoglobin Concent 34.1 g/dL (32.0-36.0) Red Cell Distribution Width 14.1 % (11.8-14.3) Platelet Count 116 10^3/uL (140-450) Mean Platelet Volume 7.7 fL (6.9-10.8) Neutrophils (%) (Auto) 68.5 % (37.0-80.0) Lymphocytes (%) (Auto) 16.7 % (10.0-50.0) Monocytes (%) (Auto) 13.2 % (0.0-12.0) Eosinophils (%) (Auto) 1.2 % (0.0-7.0) Basophils (%) (Auto) 0.4 % (0.0-2.0) Neutrophils # (Auto) 5.7 10 ^3/uL (1.6-8.6) Lymphocytes # (Auto) 1.4 10 ^3/uL (0.4-5.4) Monocytes # (Auto) 1.1 10 ^3/uL (0-1.3) Eosinophils # (Auto) 0.1 10 ^3/uL (0-0.8) Basophils # (Auto) 0 10 ^3/uL (0-0.2) Nucleated Red Blood Cells 0.0 % Sodium Level 143 mmol/L (136-145) Potassium Level 3.9 mmol/L (3.5-5.1) Chloride Level 111 mmol/L (98-107) Carbon Dioxide Level 21 mmol/L (20-31) Anion Gap 11 (5-15) Blood Urea Nitrogen 15 mg/dL (9-23) Creatinine 0.77 mg/dL (0.700-1.30) Glomerular Filtration Rate Calc 116 mL/min (>90) BUN/Creatinine Ratio 19.5 (10.0-20.0) Serum Glucose 69 mg/dL (74-106) Calcium Level 8.2 mg/dL (8.7-10.4) HIV (1&2) Antibody Negative (Negative) Prothrombin Time 11.3 sec (9.3-11.8) Prothrombin Time INR 1.07 (0.9-1.15) Activated Partial Thromboplast Time 28.2 SEC (24.5-34.5) Hemoglobin A1c 5.7 % A1C (<5.7) Magnesium Level 1.9 mg/dL (1.6-2.6) Total Bilirubin 0.4 mg/dL (0.2-1.0) Aspartate Amino Transferase (AST) 32 U/L (13-40) Alanine Aminotransferase (ALT) 30 U/L (7-40) Alkaline Phosphatase 71 U/L (46-116) Total Protein 6.1 g/dL (5.7-8.2) Albumin 3.6 g/dL (3.2-4.8) Triglycerides Level 136 mg/dL (< 150) Cholesterol Level 120 mg/dL (< 200) LDL Cholesterol 68 mg/dL (< 100) HDL Cholesterol 35 mg/dL (40-59) Vitamin B12 Level 807 pg/mL (211-911) Vitamin D 25-Hydroxy 26.3 ng/mL (30.0-100) Thyroid Stimulating Hormone (TSH) 0.53 uIU/mL (0.55-4.78) Free Thyroxine (T4) Calculated 0.75 ng/dL (0.89-1.76) Total Triiodothyronine (TT3) 0.68 ng/mL (0.60-1.81) Test 05/02/25 02:25 05/02/25 01:40 05/02/25 01:00 05/01/25 23:17 Influenza Type A Antigen Negative (Negative) Influenza Type B Antigen Negative (Negative) SARS-CoV-2 Antigen (Rapid) Negative (NEGATIVE) Ammonia < 10 umol/L (11-32) Salicylates Level < 3.0 mg/dL (-30) Acetaminophen Level < 2.0 UG/ML (10.0-20.0) Valproic Acid Level 10.0 ug/mL (50-100) Plasma/Serum Blood Alcohol < 3.0 mg/dL (<10) Blood Gas Specimen Type Venous Blood Gas Sample Site Vbg - n/a Blood Gas Patient Temperature 37.0 Arterial Blood Date Drawn Puneet Test N/a Venous Blood pH 7.401 (7.320-7.430) Venous Blood pCO2 at Patient Temp 40.7 mmHg (38.0-54.0) Venous Blood pO2 at Patient Temp < 36.5 mmHg (23.0-48.0) Venous Blood HCO3 24.7 mmol/L (22.0-29.0) Venous Bld O2 Saturation (Measured) 48.1 % (60.0-85.0) Venous Blood Base Excess -0.1 mmol/L (-2.0-3.0) Venous Blood Total Hemoglobin 13.8 g/dL (13.5-17.5) Venous Blood Oxyhemoglobin 47.3 % (0.0-79.0) Venous Blood Carboxyhemoglobin 1.2 % (0.5-1.5) Venous Blood Methemoglobin 0.4 % (0.0-1.5) Blood Gas Modality Room air FiO2 % 21.0 Blood Gas Comments Lactic Acid Level 1.3 mmol/L (0.4-2.0) Test 05/01/25 21:10 05/01/25 17:21 Urine Color Colorless (Yellow) Urine Clarity Clear (Clear) Urine pH 5.0 (5.0-9.0) Urine Specific [place] 1.008 (1.001-1.035) Urine Protein Negative (Negative) Urine Ketones Negative (Negative) Urine Blood Negative /uL (Negative) Urine Nitrite Negative (Negative) Urine Bilirubin Negative (Negative) Urine Urobilinogen Normal mg/dL (Negative) Urine Leukocyte Esterase Negative /uL (Negative) Urine RBC <1 /hpf (0 - 3) Urine Microscopic WBC < 1 /HPF (0-3) Urine Squamous Epithelial Cells None seen /hpf (<5) Urine Bacteria None seen /hpf (None Seen) Urine Glucose Normal mg/dL (Normal) Urine Opiates Screen Neg (NEGATIVE) Urine Fentanyl Screen Neg (NEGATIVE) Urine Barbiturates Screen Neg (NEGATIVE) Urine Phencyclidine Screen Neg (NEGATIVE) Urine Amphetamines Screen Neg (NEGATIVE) Urine Benzodiazepines Screen Pos (NEGATIVE) Urine Cocaine Screen Neg (NEGATIVE) Urine Cannabinoids Screen Neg (NEGATIVE) Troponin I High Sensitivity 5 ng/L (</=54) Other Laboratory Tests 05/03/25 06:40 Brief Hx & Hospital Course: Jack Zarate a 40-year-old male with a past medical history of anxiety, depression, multiple prior suicidal attempts, possible developmental delay, bipolar disorder, and substance use, was admitted with toxic encephalopathy after suspected intentional overdose of Seroquel, valproic acid, acetaminophen and benzodiazepines, he presented to the emergency department with altered mental status following a reported overdose of the polysubstance above. Head CT was negative. On arrival he was hypertensive and hypoxic. Requiring oxygen via nasal nasal cannula at 4 L/min. Initial evaluation revealed toxic encephalopathy, and acute hypoxic respiratory failure likely secondary to aspiration pneumonia. He was treated empirically with IV antibiotics including ceftriaxone and doxycycline, and his respiratory status improved, allowing discontinuation of supplemental oxygen. Imaging showed bilateral lung base opacities, more prominent on the right, consistent with possible atelectasis or pneumonia. Psychiatry was consulted due to suicidal ideation, and a 5150 hold was initiated. The patient was placed on 1 is to 1 observation and deemed clinically stable for transfer to inpatient psychiatry. However, prior to transfer, the patient eloped from the facility. The [facility] was notified immediately, and appropriate safety protocols were followed. At the time of elopement, the patient was medically stable but reminded high psychiatric risk. surgical services manager and law enforcement are actively involved in locating the patient and ensuring his safety. Case discussed with Dr Sorto and nurses. Physical Examination could not be completed before he eloped. Undetermined Operations or Procedures CXR on 05/01: Small mixed opacities in the bilateral lung bases, greater on the right which could reflect atelectasis or pneumonia. EXAM: CT HEAD WITHOUT CONTRAST INDICATION: ALOC TECHNIQUE: CT of the head without intravenous contrast. Radiation Dose Information: CT Dose: CTDI volume is 47.7 mGy. Dose-length product is 1006.29 mGy*cm The dose indicators for CT are the volume Computed Tomography (CT) Dose Index (CTDIvol) and the Dose Length Product (DLP), and are measured in units of mGy and mGy-cm, respectively. These indicators are not patient dose, but values generated from the CT scanner acquisition factors. The report includes radiation exposure data for exposures received during this examination. COMPARISON: None FINDINGS: There is no evidence of acute intracranial hemorrhage, extra-axial collection, mass effect, midline shift, herniation or hydrocephalus. The ventricles, sulci and cisterns are age appropriate. The pantoja-white differentiation is intact. Patchy periventricular and subcortical white matter hypoattenuation is nonspecific but may be related to small vessel ischemic disease. The visualized paranasal sinuses and mastoid air cells are clear. The surrounding soft tissues and osseous structures are unremarkable. IMPRESSION: 1. No acute intracranial abnormality. Condition at Discharge: Undetermined Final Diagnosis/Problems List # Toxic encephalopathy # Suicidal ideation # Acute hypoxic respiratory failure, resolved due to likely aspiration pneumonia # Sepsis likely due to possible aspiration pneumonia #Aspiration pneumonia # Thrombocytopenia # Normocytic anemia # Asymptomatic hypocalcemia # Hypokalemia-resolved # Hypernatremia-resolved # Mild transaminitis # Anxiety # Depression # Suicidal attempts # Bipolar disorder # Vitamin-D deficiency Discharge Disposition: Eloped Discharge Statement: "Patient was advised to return to the ER or call 911 if any headaches, dizziness, shortness of breath, chest pain, abdominal pain, bleeding, fevers, or worsening of medical condition. Patient was counseled about treatment plan, medications, possible side effects, patientverbalized understanding. All questions were answered to the best of my ability. This discharge took greater then 30 minutes in planning, reviewing documentation, counseling the patient, and discussing with other team members." ASSESSMENT ASSESSMENT Assessment Date of Service: May 03, 2025 Billing Provider: DONY SORTO MD Common Visit Codes: 73289-PLN/OBS DISCH DAY >30min GINA ALFONSO RESIDENT May 03, 2025 19:52 DAJA LARSON RESIDENT May 04, 2025 00:01 DONY SORTO MD May 07, 2025 21:37
[2025-05-09 11:10] LABS: Hepatitis B Surface Antigen Negative (Negative); Hepatitis C Antibody Negative (Negative)
== END 2025-05-03 13:45 | disposition left against medical advice (07) | DRG 817 ==
LOC: ER 16:39 → EDBD 16:39 → OVERFLOW 23:36
PROVIDERS: ADMIT Student in an Organized Health Care Education/Training Program
DX: T43.592A Poisoning by other antipsychotics and neuroleptics, intentional self-harm, initial encounter (principal); J69.0 Pneumonitis due to inhalation of food and vomit; A41.9 Sepsis, unspecified organism; J96.01 Acute respiratory failure with hypoxia; G92.9 Unspecified toxic encephalopathy; D69.6 Thrombocytopenia, unspecified; E83.51 Hypocalcemia; E87.0 Hyperosmolality and hypernatremia; Z20.822 Contact with and (suspected) exposure to COVID-19; T39.1X2A Poisoning by 4-Aminophenol derivatives, intentional self-harm, initial encounter; R45.851 Suicidal ideations; R74.01 Elevation of levels of liver transaminase levels; R32 Unspecified urinary incontinence; F41.9 Anxiety disorder, unspecified; D64.9 Anemia, unspecified; E87.6 Hypokalemia; F31.9 Bipolar disorder, unspecified; Y92.018 Other place in single-family (private) house as the place of occurrence of the external cause; Z91.51 Personal history of suicidal behavior
CPT/HCPCS: 36415; 36600; 70450; 71045; 80048; 80053; 80061; 80074; 80164; 80307; 80320; 80329; 81001; 82140; 82306; 82550; 82553; 82607; 82805; 83036; 83605; 83735; 84439; 84443; 84480; 84484; 85025; 85610; 85730; 86703; 86780; 87040; 87081; 87086; 87426; 87804; G0378; J2470